=== PATIENT | female | born 1960 | race Caucasian/White ===

== ENCOUNTER 2017-01-27 08:40 | Day surgery (SDC) | payer MEDICARE, OTHER ==
[~2017-01-27] VITALS: Ht 165.1 cm; Wt 83.5 kg
[~2017-01-27 08:40] MED LIST: ABILIFY10 MG PO; CLARITIN10 MG PO; FENOFIBRATE160 MG PO; FLEXERIL10 MG PO; LISINOPRIL10 MG PO; PAXIL10 MG PO; PROVENTIL HFA6.7 GM INH; SEROQUEL XR200 MG PO; SIMVASTATIN80 MG PO; TERBINAFINE HC250 MG PO; VICODIN 5-5001 EACH PO; VITAMIN D1000 UNI1 PO; VITAMIN D5000 UNIT PO; WELLBUTRIN XL300 MG PO
--- NOTE | 2017-01-27 10:32 | NUR ---
01/27/17 1032 Cody Chin 1025: IV RATE INCREASED AND THE HOB LAYED DOWN DUE TO BP.
--- NOTE | 2017-02-05 12:08 | OR ---
[facility] [address], [place] [address] Signed DATE OF SERVICE 01/27/2017 PREOPERATIVE DIAGNOSES: Weight loss (greater than 45 pounds). Generalized abdominal pain. Gas and bloating. Constipation and diarrhea. Rectal bleeding. Change in bowel habits with ribbon like stools. Internal and external hemorrhoids with associated anal skin tags. POSTOPERATIVE DIAGNOSES: A 4 mm rectal polyps at 6 and 18 cm. Internal and external hemorrhoids with associated anal skin tags. PROCEDURE: Colonoscopy with hot biopsy. ESTIMATED BLOOD LOSS: None. INDICATIONS: Dima is a 56-year-old female who I know from our colonoscopy back in 2012. Last year, she has been very stressful. She said her mom was quite ill. She has lost more than 45 pounds, she thinks as much as 75 pounds. She has been following along with her primary care provider. An abdominal ultrasound was negative. She has been having significant trouble with generalized abdominal pain, gas, bloating, constipation, and diarrhea. She has had some associated rectal bleeding. She has had a change in bowel habits with ribbon-like stools. We know she has internal and external hemorrhoids associated with anal skin tags. She reminded me there is no family history of colon cancer or polyps. She had been asked to see me for followup colonoscopy given her change in symptoms. In the office, I gave her a pamphlet on colonoscopy and we reviewed the nature of the test along with the risks including, but not limited to gas, bloating, crampy abdominal pain, bleeding, perforation, requiring surgery, and missed diagnosis. We also discussed the need for IV conscious sedation. Given her history of daily Seroquel, paroxetine, and Wellbutrin along with her COPD, asthma, and hypertension, we did use an anesthesia provider previously and that worked out well. We decided that we would go ahead and do that again on this occasion. She had expressed understanding and wished to proceed. DESCRIPTION OF PROCEDURE: Dima was taken into our endoscopy suite and placed in the left lateral decubitus position. She was given IV sedation wi th propofol per our nurse ad terminal makeup operator. A digital rectal exam was performed and this was unremarkable except for circumferential Electronically Signed By: PRINCE GRUBER MD 02/05/17 1208 PATIENT NAME: DIMA SERRANO OPERATIVE REPORT DATE OF : 62 PHYSICIAN: PRINCE GRUBER MD REPORT #: [id number] REPORT IS CONFIDENTIAL AND NOT TO BE RELEASED WITHOUT AUTHORIZATION [facility] [address], [place] [address] Signed moderate-sized external hemorrhoids. The adult colonoscope was then introduced and advanced all around into the cecum. It took e xtra sedation and we had to rotate Dima several times onto her back and back into the left lateral decubitus position. We used the abdominal compression in various points of the abdomen. The colonoscope continued to coil in the left side of the colon . We finally made it down past the hepatic flexure and into the cecum itself. Her prep was good. The scope was then slowly withdrawn. We could easily see the miccosukee's foot and appendiceal orifice along with ileocecal valve. We had taken pictures throughout for p h otodocumentation. The whole colon was unremarkable except its long and redundant trachea on the left. The rectum was unremarkable except for multiple small hyperplastic appearing polyps. Upon retroflexion of the scope, she does have some internal hemorrhoid columns with the skin tag. After this, the gas was suctioned out and the colonoscope removed. Dima tolerated the procedure quite well. RECOMMENDATIONS: I will see Dima back in my office in 7-14 days to review her results. MD KATHY Hernadez/Cee /[id number] cc: MD Silas Loomis, Electronically Signed By: PRINCE GRUBER MD 02/05/17 1208 PATIENT NAME: DIMA SERRANO OPERATIVE REPORT DATE OF : 62 PHYSICIAN: PRINCE GRUBER MD REPORT #: [id number] REPORT IS CONFIDENTIAL AND NOT TO BE RELEASED WITHOUT AUTHORIZATION
== END 2017-01-27 11:00 | disposition home or self-care (01) ==
LOC: DS 08:40 → OPS 08:40 → DS 09:15 → OPS 11:00
PROVIDERS: Colon & Rectal Surgery
PROC: 0DBF8ZX Excision of Right Large Intestine, Via Natural or Artificial Opening Endoscopic, Diagnostic (ICD-10-PCS; 2017-01-27)
PROC: 0DBE8ZX Excision of Large Intestine, Via Natural or Artificial Opening Endoscopic, Diagnostic (ICD-10-PCS; principal; 2017-01-27 09:15)
DX: K63.5 Polyp of colon (principal); K64.8 Other hemorrhoids; K64.4 Residual hemorrhoidal skin tags; I10 Essential (primary) hypertension; J44.9 Chronic obstructive pulmonary disease, unspecified; K76.0 Fatty (change of) liver, not elsewhere classified; E78.00 Pure hypercholesterolemia, unspecified; M19.90 Unspecified osteoarthritis, unspecified site; G60.9 Hereditary and idiopathic neuropathy, unspecified; F32.9 Major depressive disorder, single episode, unspecified; F43.10 Post-traumatic stress disorder, unspecified; Z86.03 Personal history of neoplasm of uncertain behavior; F17.210 Nicotine dependence, cigarettes, uncomplicated; Z90.89 Acquired absence of other organs; Z90.49 Acquired absence of other specified parts of digestive tract; Z98.51 Tubal ligation status; Z98.890 Other specified postprocedural states; Z88.5 Allergy status to narcotic agent; Z88.0 Allergy status to penicillin; Z91.040 Latex allergy status; Z88.8 Allergy status to other drugs, medicaments and biological substances; Z79.899 Other long term (current) drug therapy
CPT/HCPCS: 00810; 88305; J2250; J2704; J3010; J7120

== ENCOUNTER 2017-04-30 05:40 | Day surgery (SDC) | payer MEDICARE, OTHER ==
[~2017-04-30] VITALS: Ht 165.1 cm; Wt 85.3 kg
[2017-04-30] MEDS ORDERED: NORCO 5-325 TA1 EACH PO (09:29)
--- NOTE | 2017-05-02 07:10 | OR ---
[facility] [address], [place] [address] Signed DATE OF PROCEDURE: 04/30/17 PREOPERATIVE DIAGNOSIS Incarcerated umbilical trocar site incisional hernia. POSTOPERATIVE DIAGNOSES Incarcerated umbilical hernia (1 cm). Incarcerated infraumbilical trocar site incisional hernia (1 cm). PROCEDURE Umbilical herniorrhaphy with intraabdominal Ventralex mesh (4.3 cm). Infraumbilical trocar site incisional herniorrhaphy with intraabdominal Ventralex mesh (4.3 cm). ESTIMATED BLOOD LOSS: None. INDICATIONS Dima is a 56-year-old female, who has been having pain at her umbilicus. She underwent a laparoscopic appendectomy a few years ago. She seems to have a painful lump at the base of the umbilicus and/or trocar site. She went to her primary care provider. An ultrasound was ordered and confirmed a small incarcerated hernia. Consequently, she was asked to see me as a general surgeon. I had met with Dima in the office. I gave her a booklet on hernias. We had discussed the difference between an umbilical and an incisional hernia from a trocar site. I also explained to Dima it is quite common that patients have both hernias at the time of surgery. On physical exam, we could certainly feel the hernia at the base of the umbilicus. She also understands the difference between a primary suture repair and a mesh repair. She understands expected intraop and postop course. There is risk of surgery including, but not limited to bleeding, infection, scarring, change in contour of the skin, damage to bowel, infection of mesh requiring removal, recurrent hernias and chronic pain. She had expressed understanding and wished to proceed. PROCEDURE NOTE I met with Dima and her boyfriend in our preop area. We all identified the hernia at the base of the umbilicus and we marked that appropriately. She was then taken into the operating room and placed in the supine position under general endotracheal tube anesthesia. She was given preoperative antibiotics along with subcutaneous heparin. SCDs were utilized. She was then prepped and draped in the usual sterile fashion. We utilized her previous vertical infraumbilical incision at the 6 o'clock position. This was opened sharply with a knife and carried down through the tissues bluntly and with the cautery. We the umbilical skin from the fascial defect with the help of the cautery. She had a standard 1 cm umbilical hernia with incarcerated fat. The fat was reduced from Electronically Signed By: PRINCE GRUBER MD 05/02/17 0710 PATIENT NAME: DIMA SERRANO OPERATIVE REPORT DATE OF : 62 PHYSICIAN: PRINCE GRUBER MD REPORT #: [id number] REPORT IS CONFIDENTIAL AND NOT TO BE RELEASED WITHOUT AUTHORIZATION [address] [address] Signed the hernia sac and discarded. However, I did encounter significant scar tissue in that area, so I traveled inferiorly just a short distance to ensure enough, I encountered her 2nd hernia from her trocar site just below the umbilicus by about 2-1/2 to 3 cm. She had fat bulging through this as well. We then excised the hernia sac from that trocar site and discarded it as well. The 2 sites were just far enough apart we could use separate 4.3 cm round Ventralex mesh to repair both hernias. Two separate pieces of mesh were passed through each individual hernia site and brought up, flushed against the posterior abdominal wall. The fascial defects were closed transversely with running #1 Prolene suture. Several passes of the suture went through the tab of the mesh to help hold it in place. The tabs were cut flushed with the abdominal wall and discarded. Local anesthetic was then copiously injected in the wound. The wound was irrigated and suctioned out until clear. The umbilical skin was then held down at the midline fascia with interrupted 2-0 PDS suture. The skin and dermis were then reapproximated with interrupted 3-0 subcuticular Monocryl sutures. Dry gauze and tape were then applied. Dima was then awakened from her anesthesia, extubated in the OR, taken to recovery room in stable condition. MD KATHY Hernadez/Cee /[id number] cc: LUIGI Jeronimo MD Electronically Signed By: PRINCE GRUBER MD 05/02/17 0710 PATIENT NAME: DIMA SERRANO OPERATIVE REPORT DATE OF : 62 PHYSICIAN: PRINCE GRUBER MD REPORT #: [id number] REPORT IS CONFIDENTIAL AND NOT TO BE RELEASED WITHOUT AUTHORIZATION
== END 2017-04-30 10:25 | disposition home or self-care (01) ==
LOC: DS 05:40
PROVIDERS: Colon & Rectal Surgery
PROC: 0WUF0JZ Supplement Abdominal Wall with Synthetic Substitute, Open Approach (ICD-10-PCS; principal; 2017-04-30 06:45)
PROC: 0WUF0JZ Supplement Abdominal Wall with Synthetic Substitute, Open Approach (ICD-10-PCS; 2017-04-30 06:45)
DX: K42.0 Umbilical hernia with obstruction, without gangrene (principal); K43.2 Incisional hernia without obstruction or gangrene; I10 Essential (primary) hypertension; J44.9 Chronic obstructive pulmonary disease, unspecified; K76.0 Fatty (change of) liver, not elsewhere classified; E78.5 Hyperlipidemia, unspecified; F17.210 Nicotine dependence, cigarettes, uncomplicated; M19.90 Unspecified osteoarthritis, unspecified site; F20.9 Schizophrenia, unspecified; F32.9 Major depressive disorder, single episode, unspecified; F43.10 Post-traumatic stress disorder, unspecified; Z86.03 Personal history of neoplasm of uncertain behavior; Z90.89 Acquired absence of other organs; Z90.49 Acquired absence of other specified parts of digestive tract; Z98.51 Tubal ligation status; Z91.040 Latex allergy status; Z88.0 Allergy status to penicillin; Z98.890 Other specified postprocedural states; Z79.899 Other long term (current) drug therapy
CPT/HCPCS: 00750; C1781; J0330; J1644; J1885; J2704; J3010; J7120

== ENCOUNTER 2017-09-03 15:07 | Emergency (ER) | payer MEDICARE, OTHER ==
[~2017-09-03] VITALS: Ht 167.6 cm; Wt 85.3 kg
[~2017-09-03 15:07] MED LIST changes: +NORCO 5-325 TA1 EACH PO
[2017-09-03] MEDS ORDERED: PAROXETINE HCL10 MG PO (15:27)
[2017-09-03] MEDS ORDERED: LISINOPRIL-HCT1 EACH PO (15:28)
[2017-09-03] MEDS ORDERED: ROPINIROLE HC0.25 MG PO (15:30)
--- NOTE | 2017-09-05 14:06 | EKG ---
[facility] [address] [facility] [place] [address] Signed Normal sinus rhythm Abnormal ECG When compared with ECG of 20-APR-2017 09:09, No significant change was found Confirmed by MARCUS BUSBY MD ([id number]) on 09/05/2017 2:05:52 PM Electronically Signed By: MARCUS BUSBY MD 09/05/17 1406 PATIENT NAME: DIMA SERRANO Electrocardiogram DATE OF : 62 PHYSICIAN: MARCUS BUSBY MD REPORT #: [id number] REPORT IS CONFIDENTIAL AND NOT TO BE RELEASED WITHOUT AUTHORIZATION
== END 2017-09-04 14:15 | disposition home or self-care (01) ==
LOC: ED 15:07
PROC: 0T9B70Z Drainage of Bladder with Drainage Device, Via Natural or Artificial Opening (ICD-10-PCS; principal; 2017-09-03)
DX: F23 Brief psychotic disorder (principal); F41.9 Anxiety disorder, unspecified; F31.9 Bipolar disorder, unspecified; I10 Essential (primary) hypertension; E78.5 Hyperlipidemia, unspecified; F17.200 Nicotine dependence, unspecified, uncomplicated; Z88.0 Allergy status to penicillin; Z88.5 Allergy status to narcotic agent; Z91.040 Latex allergy status; Z88.8 Allergy status to other drugs, medicaments and biological substances; Z79.899 Other long term (current) drug therapy
CPT/HCPCS: 51701; 70450; 71046; 80053; 80176; 81001; 84443; 84703; 85025; 93005; 93010; 96372; 96374; 99284; G0480; J1630; J2060; J7030

== ENCOUNTER 2017-09-05 10:24 | Emergency (ER) | payer MEDICARE, OTHER ==
[~2017-09-05] VITALS: Ht 167.6 cm; Wt 85.3 kg
[~2017-09-05 10:24] MED LIST changes: +LISINOPRIL-HCT1 EACH PO; +PAROXETINE HCL10 MG PO; +ROPINIROLE HC0.25 MG PO
== END 2017-09-06 15:42 | disposition short-term general hospital (02) ==
LOC: ED 10:24
DX: F23 Brief psychotic disorder (principal); F91.9 Conduct disorder, unspecified; F31.9 Bipolar disorder, unspecified; F41.9 Anxiety disorder, unspecified; I10 Essential (primary) hypertension; F17.200 Nicotine dependence, unspecified, uncomplicated; Z88.0 Allergy status to penicillin; Z88.6 Allergy status to analgesic agent; Z88.5 Allergy status to narcotic agent; Z91.040 Latex allergy status; Z79.899 Other long term (current) drug therapy
CPT/HCPCS: 36415; 80053; 80176; 81001; 84443; 85025; 96372; 99285; G0480; J1630; J2060

== ENCOUNTER 2019-03-06 13:31 | Emergency (ER) | payer MEDICARE, OTHER ==
[~2019-03-06] VITALS: Ht 167.6 cm; Wt 91.2 kg
[~2019-03-06 13:31] MED LIST changes: +METFORMIN HCL500 MG PO
[2019-03-06] MEDS ORDERED: BUPROPION XL300 MG PO (13:39)
--- NOTE | 2019-03-07 15:36 | EKG ---
[facility] [address] [facility] [place] [address] Signed Normal sinus rhythm Normal ECG When compared with ECG of 28-NOV-2018 08:29, No significant change was found Confirmed by MARCUS BUSBY MD ([id number]) on 03/07/2019 3:36:42 PM Electronically Signed By: MARCUS BUSBY MD 03/07/19 1536 PATIENT NAME: DIMA SERRANO Electrocardiogram DATE OF : 62 PHYSICIAN: MARCUS BUSBY MD REPORT #: [id number] REPORT IS CONFIDENTIAL AND NOT TO BE RELEASED WITHOUT AUTHORIZATION
== END 2019-03-06 20:02 | disposition home or self-care (01) ==
LOC: ED 13:31 → MS 17:36 → ED 19:47
PROC: 0T9B70Z Drainage of Bladder with Drainage Device, Via Natural or Artificial Opening (ICD-10-PCS; principal; 2019-03-06)
DX: F32.9 Major depressive disorder, single episode, unspecified (principal); F41.9 Anxiety disorder, unspecified; F31.9 Bipolar disorder, unspecified; I10 Essential (primary) hypertension; E78.5 Hyperlipidemia, unspecified; F17.200 Nicotine dependence, unspecified, uncomplicated; Z88.0 Allergy status to penicillin; Z88.6 Allergy status to analgesic agent; Z88.5 Allergy status to narcotic agent; Z91.040 Latex allergy status; Z79.899 Other long term (current) drug therapy
CPT/HCPCS: 36415; 51701; 70450; 71045; 80053; 81001; 82140; 82550; 84443; 84484; 85025; 93005; 93010; 99285-25; G0480

== ENCOUNTER 2019-03-07 16:07 | Emergency (ER) | payer MEDICARE, OTHER ==
[~2019-03-07] VITALS: Ht 167.6 cm; Wt 91.2 kg
[~2019-03-07 16:07] MED LIST changes: +BUPROPION XL300 MG PO
--- OUTSIDE RECORDS SUMMARY | 2019-03-07 16:12 | XMS ---
PreManage Notification: DIMA SERRANO Security Pipe Changer Events No recent Security Events currently on file CRITERIA MET - [facility] - 2 Visits in 30 Days CARE PROVIDERS Ivy Booker MD PHONE: Unknown IVY BOOKER Primary Care 05/16/2013-Current PHONE: Unknown Yousif has no Care Guidelines for this patient. [place] VISIT COUNT (12 MO.) 2 [facility] TOTAL 2 NOTE: Visits indicate total known visits. ED/UCC VISIT TRACKING (12 MO.) 03/07/2019 16:09 [facility] [place] TYPE: Emergency COMPLAINT: - FOLLOW UP MEDICAL SCREEN 03/06/2019 13:31 [facility] OR TYPE: Emergency COMPLAINT: - ALTERED LOC INPATIENT VISIT TRACKING (12 MO.) 03/06/2019 17:36 [facility] OR TYPE: Medical Surgical COMPLAINT: - CHF [email or web address]
== END 2019-03-07 18:28 | disposition home or self-care (01) ==
LOC: ED 16:07
DX: F20.9 Schizophrenia, unspecified (principal); F41.9 Anxiety disorder, unspecified; F32.9 Major depressive disorder, single episode, unspecified; F31.9 Bipolar disorder, unspecified; I10 Essential (primary) hypertension; E78.5 Hyperlipidemia, unspecified; F17.200 Nicotine dependence, unspecified, uncomplicated; Z88.0 Allergy status to penicillin; Z88.5 Allergy status to narcotic agent; Z88.6 Allergy status to analgesic agent; Z91.040 Latex allergy status; Z79.899 Other long term (current) drug therapy
CPT/HCPCS: 99282

== ENCOUNTER 2019-03-08 12:26 | Emergency (ER) | payer MEDICARE, OTHER ==
[~2019-03-08] VITALS: Ht 167.6 cm; Wt 91.2 kg
--- OUTSIDE RECORDS SUMMARY | 2019-03-08 12:30 | XMS ---
PreManage Notification: DIMA SERRANO Security Clerk Stenographer Events No recent Security Events currently on file CRITERIA MET - Group Notification - [facility] - 2 Visits in 30 Days CARE PROVIDERS IVY BOOKER Family Medicine 03/08/2019-Current PHONE: Unknown Ivy Booker [place] PHONE: Unknown IVY BOOKER Primary Care 05/16/2013-Current PHONE: Unknown Yousif has no Care Guidelines for this patient. E.D. VISIT COUNT (12 MO.) 3 [facility] TOTAL 3 NOTE: Visits indicate total known visits. ED/UCC VISIT TRACKING (12 MO.) 03/08/2019 12:27 [facility] OR TYPE: Emergency COMPLAINT: - MEDICAL CLEARANCE 03/07/2019 16:09 [facility] OR TYPE: Emergency COMPLAINT: - FOLLOW UP MEDICAL SCREEN 03/06/2019 13:31 [facility] OR TYPE: Emergency COMPLAINT: - ALTERED LOC INPATIENT VISIT TRACKING (12 MO.) 03/06/2019 17:36 [facility] OR TYPE: Medical Surgical COMPLAINT: - CHF [id number]
== END 2019-03-08 17:51 | disposition home or self-care (01) ==
LOC: ED 12:26
DX: F20.9 Schizophrenia, unspecified (principal); F32.9 Major depressive disorder, single episode, unspecified; F41.9 Anxiety disorder, unspecified; F31.9 Bipolar disorder, unspecified; I10 Essential (primary) hypertension; E78.5 Hyperlipidemia, unspecified; F17.200 Nicotine dependence, unspecified, uncomplicated; Z88.0 Allergy status to penicillin; Z88.8 Allergy status to other drugs, medicaments and biological substances; Z88.5 Allergy status to narcotic agent; Z91.040 Latex allergy status; Z79.899 Other long term (current) drug therapy; Z79.84 Long term (current) use of oral hypoglycemic drugs
CPT/HCPCS: 36415; 80053; 80176; 81001; 84443; 84703; 85025; 96372; 99284; G0480

== ENCOUNTER 2019-03-21 21:48 | Emergency (ER) | payer MEDICARE, OTHER ==
[~2019-03-21] VITALS: Ht 167.6 cm; Wt 91.2 kg
--- OUTSIDE RECORDS SUMMARY | 2019-03-21 21:50 | XMS ---
PreManage Notification: DIMA SERRANO Security Video Game Tester Events No recent Security Events currently on file CRITERIA MET - Group Notification - [facility] - Has Care Guidelines - [facility] - 2 Visits in 30 Days CARE PROVIDERS IVY BOOKER Family Medicine 03/08/2019-Current PHONE: Unknown Ivy Booker [place] PHONE: Unknown IVY BOOKER Primary Care 05/16/2013-Current PHONE: Unknown Guidelines Source: [employer] [place] Guidelines Date: 03/09/2019 Care Coordination: Mental health services provided by [employer].\T\nbsp; Please contact [employer] with mental health concerns.\T\nbsp; [place]: [phone]\T\ nbsp; [place]: [phone]. [place] VISIT COUNT (12 MO.) 1 [place] [address] [facility] TOTAL 5 NOTE: Visits indicate total known visits. ED/UCC VISIT TRACKING (12 MO.) 03/21/2019 21:48 [facility] [place] TYPE: Emergency COMPLAINT: - MENTAL ISSUES 03/15/2019 15:36 [facility] OR TYPE: Emergency COMPLAINT: - POSS. SEIZURE 03/08/2019 12:27 [facility] [place] TYPE: Emergency COMPLAINT: - MEDICAL CLEARANCE DIAGNOSES: - Anxiety disorder, unspecified - Latex allergy status - Allergy status to narcotic agent status - Allergy status to other drugs, medicaments and biological substances status - terminal supervisor (current) use of oral hypoglycemic drugs - Nicotine dependence, unspecified, uncomplicated - Hyperlipidemia, unspecified - Other terminal clerk (current) drug therapy - Schizophrenia, unspecified - Essential (primary) hypertension - Allergy status to penicillin - Bipolar disorder, unspecified - Major depressive disorder, single episode, unspecified 03/07/2019 16:09 [facility] [place] TYPE: Emergency COMPLAINT: - FOLLOW UP MEDICAL SCREEN DIAGNOSES: - Latex allergy status - Major depressive disorder, single episode, unspecified - Schizophrenia, unspecified - Other half-way (current) drug therapy - Essential (primary) hypertension - Allergy status to narcotic agent status - Encounter for other general examination - Allergy status to analgesic agent status - Nicotine dependence, unspecified, uncomplicated - Anxiety disorder, unspecified - Bipolar disorder, unspecified - Hyperlipidemia, unspecified - Allergy status to penicillin 03/06/2019 13:31 [facility] OR TYPE: Emergency COMPLAINT: - ALTERED LOC DIAGNOSES: - Major depressive disorder, single episode, unspecified - Bipolar disorder, unspecified - Latex allergy status - Other half-way (current) drug therapy - Essential (primary) hypertension - Nicotine dependence, unspecified, uncomplicated - Altered mental status, unspecified - Anxiety disorder, unspecified - Allergy status to analgesic agent status - Allergy status to narcotic agent status - Hyperlipidemia, unspecified - Allergy status to penicillin INPATIENT VISIT TRACKING (12 MO.) 03/06/2019 17:36 [facility] OR TYPE: Medical Surgical COMPLAINT: - CHF [email or web address]
[2019-03-22] MEDS ORDERED: CHLORPROMAZINE100 MG PO (10:09)
[2019-03-22] MEDS ORDERED: ABILIFY10 MG PO (10:11)
== END 2019-03-23 00:15 ==
LOC: ED 21:48
DX: F20.9 Schizophrenia, unspecified (principal); I10 Essential (primary) hypertension; F41.9 Anxiety disorder, unspecified; F32.9 Major depressive disorder, single episode, unspecified; F31.9 Bipolar disorder, unspecified; E78.5 Hyperlipidemia, unspecified; F17.200 Nicotine dependence, unspecified, uncomplicated; Z88.0 Allergy status to penicillin; Z88.6 Allergy status to analgesic agent; Z88.5 Allergy status to narcotic agent; Z91.040 Latex allergy status; Z79.899 Other long term (current) drug therapy
CPT/HCPCS: 36415; 80053; 80176; 81001; 84443; 85025; 96372; 99284; G0480; J2060; Q0161

== ENCOUNTER 2020-05-27 04:31 | Emergency (ER) | payer MEDICARE, OTHER ==
[~2020-05-27] VITALS: Ht 167.6 cm; Wt 91.2 kg
[~2020-05-27 04:31] MED LIST changes: +CHLORPROMAZINE100 MG PO
--- OUTSIDE RECORDS SUMMARY | 2020-05-27 04:34 | XMS ---
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 Guidelines Date: 03/09/2019 Care Coordination: Mental health services provided by [employer].\T\nbsp; Please contact [employer] with mental health concerns.\T\nbsp; [place]: [phone]\T\ nbsp; [place]: [phone]. E.D. VISIT COUNT (12 MO.) [address] [place] [address] TOTAL 1 NOTE: Visits indicate total known visits. ED/UCC VISIT TRACKING (12 MO.) 05/27/2020 04:31 [facility] TYPE: Emergency COMPLAINT: - LEFT SIDE PAIN INPATIENT VISIT TRACKING (12 MO.) No inpatient visits to display in this time frame [email or web address]
[2020-05-27] MEDS ORDERED: FENOFIBRATE40 MG PO (04:51)
[2020-05-27] MEDS ORDERED: NEURONTIN100 MG PO (04:52)
[2020-05-27] MEDS ORDERED: NORCO 5-325 TA1 EACH PO (06:01)
== END 2020-05-27 06:16 | disposition home or self-care (01) ==
LOC: ED 04:31
DX: N13.2 Hydronephrosis with renal and ureteral calculous obstruction (principal); F31.9 Bipolar disorder, unspecified; F41.9 Anxiety disorder, unspecified; F20.9 Schizophrenia, unspecified; I10 Essential (primary) hypertension; E78.5 Hyperlipidemia, unspecified; J44.9 Chronic obstructive pulmonary disease, unspecified; Z88.0 Allergy status to penicillin; Z88.8 Allergy status to other drugs, medicaments and biological substances; Z88.5 Allergy status to narcotic agent; Z91.040 Latex allergy status; Z79.899 Other long term (current) drug therapy
CPT/HCPCS: 74176; 81001; 96372; 99284-25; J1885

== ENCOUNTER 2021-06-03 08:38 | Emergency (ER) | payer MEDICARE, OTHER ==
[~2021-06-03] VITALS: Ht 167.6 cm; Wt 102.4 kg
[~2021-06-03 08:38] MED LIST changes: +ABILIFY MAINTE400 M1 IM; +FENOFIBRATE40 MG PO; +NEURONTIN100 MG PO
--- OUTSIDE RECORDS SUMMARY | 2021-06-03 09:12 | XMS ---
PreManage Notification: DIMA SERRANO Security Audit Mgr Events No recent Security Events currently on file CRITERIA MET - Group Notification CARE PROVIDERS IVY BEEBE Family [facility] 03/08/2019-Current PHONE: [phone] Care Guidelines exist for the following facilities: [facility] ( 09/09/2020 ) [place] VISIT COUNT (12 MO.) 1 [facility] TOTAL 1 NOTE: Visits indicate total known visits. ED/UCC VISIT TRACKING (12 MO.) 06/03/2021 08:[address] [facility] [place] TYPE: Emergency COMPLAINT: - L LEG/LOWER BACK NUMBNESS INPATIENT VISIT TRACKING (12 MO.) No inpatient visits to display in this time frame [email or web address]
[2021-06-03] MEDS ORDERED: PREDNISONE20 MG PO (10:16)
== END 2021-06-03 10:30 | disposition home or self-care (01) ==
LOC: ED 08:38
DX: M54.16 Radiculopathy, lumbar region (principal); I10 Essential (primary) hypertension; E78.5 Hyperlipidemia, unspecified; J44.9 Chronic obstructive pulmonary disease, unspecified; F17.200 Nicotine dependence, unspecified, uncomplicated; Z88.0 Allergy status to penicillin; Z88.5 Allergy status to narcotic agent; Z91.040 Latex allergy status; Z79.899 Other long term (current) drug therapy; Z79.84 Long term (current) use of oral hypoglycemic drugs
CPT/HCPCS: 72131; 99284-25